=== PATIENT | male | born 1975 | race Two or more races ===

== ENCOUNTER 2023-05-12 10:02 | Inpatient (IN) | payer OTHER ==
[~2023-05-12] VITALS: Ht 182.9 cm; Wt 142.4 kg
[2023-05-12] MEDS ORDERED: MAG HYDROX/AL HYDROX/SIMETH 30 ML UDC PO PRN (15:30)
[2023-05-12] MEDS ORDERED: LORAZEPAM 1 MG TABLET FOR AGITATION PO PRN (15:30)
[2023-05-12] MEDS ORDERED: ACETAMINOPHEN ES 500 MG TABLET PO PRN (15:30)
[2023-05-12] MEDS ORDERED: MAGNESIUM HYDROXIDE 30 ML UDC PO PRN (15:30)
[2023-05-12] MEDS ORDERED: IBUPROFEN 200 MG TABLET PO PRN (15:30)
[2023-05-12] MEDS ORDERED: ZOLPIDEM TARTRATE 10 MG TABLET PO PRN (15:30)
[2023-05-12 16:00] VITALS: BP 141/77; TEMP 97.5; O2SAT 100
[2023-05-12 20:00] VITALS: BP 107/52; TEMP 98.1; O2SAT 100
[2023-05-12] MEDS: risperiDONE 1 MG TABLET PO SCH (21:59)
[2023-05-13 08:00] VITALS: BP 127/71; TEMP 97.4; O2SAT 98
[2023-05-13 16:00] VITALS: BP 126/72; TEMP 98; O2SAT 100
[2023-05-13 20:00] VITALS: BP 120/61; TEMP 97.8; O2SAT 97
[2023-05-14 08:00] VITALS: BP 126/71; TEMP 98.2; O2SAT 99
[2023-05-14 16:00] VITALS: BP 112/76; TEMP 97.9; O2SAT 100
[2023-05-14 21:32] VITALS: BP 130/66; TEMP 98.1; O2SAT 98
[2023-05-15 08:00] VITALS: BP 134/72; TEMP 98.1; O2SAT 98
[2023-05-15 16:00] VITALS: BP 127/77; TEMP 98.2; O2SAT 98
[2023-05-15 20:05] VITALS: BP 119/67; TEMP 98.4; O2SAT 98
[2023-05-16 08:00] VITALS: BP 100/58; TEMP 98; O2SAT 98
[2023-05-16 16:00] VITALS: BP 115/69; TEMP 98; O2SAT 98
[2023-05-16 21:12] VITALS: BP 123/82; TEMP 98.6; O2SAT 100
[2023-05-17 08:00] VITALS: BP 132/81; TEMP 97.9; O2SAT 98
[2023-05-17 16:00] VITALS: BP 136/97; TEMP 98.6; O2SAT 99
[2023-05-17 20:00] VITALS: BP 135/99; TEMP 98; O2SAT 98
[2023-05-17 20:03] VITALS: BP 104/56; TEMP 98.4; O2SAT 97
[2023-05-17 22:05] VITALS: BP 135/99; TEMP 98; O2SAT 98
[2023-05-18 08:56] VITALS: BP 159/100; TEMP 98; O2SAT 98
[2023-05-18 16:17] VITALS: BP 154/86; TEMP 98; O2SAT 99
[2023-05-18 20:00] VITALS: BP 143/98; TEMP 99; O2SAT 97
[2023-05-19 06:33] VITALS: BP 143/98; TEMP 99; O2SAT 97
[2023-05-19 09:06] VITALS: BP 147/93; TEMP 98; O2SAT 100
[2023-05-19] MEDS ORDERED: LORAZEPAM 1 MG TABLET FOR AGITATION PO PRN (12:00)
[2023-05-19] MEDS ORDERED: ZOLPIDEM TARTRATE 10 MG TABLET PO PRN (12:00)
[2023-05-19 20:00] VITALS: BP 143/95; TEMP 98.6; O2SAT 97
[2023-05-19] MEDS: INVEST MED MK-8189-008-02 MISC 1 DOSE PO SCH (20:01)
[2023-05-21 07:30] VITALS: BP 122/65; TEMP 97.9; O2SAT 98
[2023-05-21 16:00] VITALS: BP 141/96; TEMP 97.9; O2SAT 99
[2023-05-21 20:00] VITALS: BP 153/95; TEMP 97.7; O2SAT 97
[2023-05-22 16:00] VITALS: BP 142/86; TEMP 98.6; O2SAT 96
[2023-05-22 20:00] VITALS: BP 152/95; TEMP 98.6; O2SAT 96
[2023-05-23 16:18] VITALS: BP 136/101; TEMP 98.2; O2SAT 97
[2023-05-23 21:09] VITALS: BP 150/95; TEMP 98.2; O2SAT 96
[2023-05-24 08:00] VITALS: BP 123/75; TEMP 98.1; O2SAT 99
[2023-05-24 16:21] VITALS: BP 131/88; TEMP 98.2; O2SAT 96
[2023-05-24 20:00] VITALS: BP 153/92; TEMP 98.6; O2SAT 98
[2023-05-25 08:37] VITALS: BP 150/90; TEMP 98; O2SAT 96
[2023-05-26] MEDS ORDERED: LORAZEPAM 1 MG TABLET FOR AGITATION PO PRN (12:00)
[2023-05-26] MEDS ORDERED: ZOLPIDEM TARTRATE 10 MG TABLET PO PRN (12:00)
[2023-05-26 20:00] VITALS: BP 155/101; TEMP 98.4; O2SAT 96
[2023-05-27 08:00] VITALS: BP 100/66; TEMP 98.2; O2SAT 100
[2023-05-27 16:00] VITALS: BP 122/80; TEMP 98.6; O2SAT 99
[2023-05-27 20:00] VITALS: BP 155/97; TEMP 97.7; O2SAT 95
[2023-05-28 20:00] VITALS: BP 135/96; TEMP 97.8; O2SAT 98
[2023-05-29 08:00] VITALS: BP 139/87; TEMP 98.8; O2SAT 99
[2023-05-29 16:00] VITALS: BP 129/84; TEMP 98.8; O2SAT 99
[2023-05-29 20:00] VITALS: BP 139/84; TEMP 97.5; O2SAT 97
[2023-05-30 08:00] VITALS: BP 161/90; TEMP 98.2; O2SAT 100
[2023-05-30 16:00] VITALS: BP 126/76; TEMP 97.7; O2SAT 100
[2023-05-30 20:00] VITALS: BP 144/80; TEMP 96.6; O2SAT 98
[2023-05-31 07:00] VITALS: BP 135/108; TEMP 98.4; O2SAT 94
[2023-05-31 12:00] VITALS: BP 138/108; TEMP 98.4; O2SAT 94
[2023-05-31 16:00] VITALS: BP 139/90; TEMP 97.9; O2SAT 96
[2023-06-01 07:00] VITALS: BP 131/95; TEMP 98.4; O2SAT 97
[2023-06-01 16:13] VITALS: BP 130/95; TEMP 98.4; O2SAT 100
[2023-06-01 20:00] VITALS: BP 128/86; TEMP 98.2; O2SAT 98
[2023-06-02 07:00] VITALS: BP 140/90; TEMP 98.4; O2SAT 94
[2023-06-02] MEDS ORDERED: LORAZEPAM 1 MG TABLET FOR AGITATION PO PRN (12:00)
[2023-06-02] MEDS ORDERED: ZOLPIDEM TARTRATE 10 MG TABLET PO PRN (12:00)
[2023-06-02 16:00] VITALS: BP 142/89; TEMP 98.6; O2SAT 94
[2023-06-02 20:00] VITALS: BP 141/95; TEMP 98.8; O2SAT 95
[2023-06-03 07:00] VITALS: BP 138/95; TEMP 98.4; O2SAT 94
[2023-06-03 16:00] VITALS: BP 156/97; TEMP 98.4; O2SAT 99
[2023-06-03 20:00] VITALS: BP 142/74; TEMP 98.2; O2SAT 98
[2023-06-04 07:00] VITALS: BP 110/64; TEMP 97.9; O2SAT 97
[2023-06-04 16:00] VITALS: BP 157/101; TEMP 96; O2SAT 96
[2023-06-04 20:00] VITALS: BP 146/92; TEMP 97.9; O2SAT 98
[2023-06-05 08:00] VITALS: BP 107/66; TEMP 97.9; O2SAT 97
[2023-06-05 16:00] VITALS: BP 128/74; TEMP 98.6; O2SAT 96
[2023-06-05 20:00] VITALS: BP 145/96; TEMP 99.1; O2SAT 98
[2023-06-06 08:00] VITALS: BP 92/54; TEMP 97.9; O2SAT 100
[2023-06-06 16:00] VITALS: BP 150/77; TEMP 98.2; O2SAT 97
[2023-06-06 22:05] VITALS: BP 136/89; TEMP 98.8; O2SAT 98
[2023-06-07 07:00] VITALS: BP 119/79; TEMP 99.5
[2023-06-07 16:00] VITALS: BP 100/51; TEMP 97.3; O2SAT 96
[2023-06-07 20:00] VITALS: BP 137/80; TEMP 98.2; O2SAT 95
[2023-06-08 07:00] VITALS: BP 130/77; TEMP 97.5; O2SAT 98
[2023-06-08 20:00] VITALS: BP 152/105; TEMP 98.4; O2SAT 98
[2023-06-08 22:18] VITALS: BP 152/105; TEMP 98.4; O2SAT 98
[2023-06-09] MEDS ORDERED: ZOLPIDEM TARTRATE 10 MG TABLET PO PRN (12:00)
[2023-06-09] MEDS ORDERED: LORAZEPAM 1 MG TABLET FOR AGITATION PO PRN (12:00)
[2023-06-09 20:00] VITALS: BP 144/99; TEMP 98.2; O2SAT 97
[2023-06-10 16:00] VITALS: BP 128/76; TEMP 98.1; O2SAT 97
[2023-06-10 20:00] VITALS: BP 141/95; TEMP 98.8; O2SAT 95
[2023-06-11 08:00] VITALS: BP 148/92; TEMP 98.2
[2023-06-11 16:00] VITALS: BP 135/79; TEMP 98.1; O2SAT 97
[2023-06-11 20:00] VITALS: BP 133/82; TEMP 98.4; O2SAT 97
[2023-06-12 20:00] VITALS: BP 149/90; TEMP 98.2; O2SAT 96
[2023-06-13 15:58] VITALS: BP 124/93; TEMP 98.2; O2SAT 96
[2023-06-13 21:31] VITALS: BP 139/96; TEMP 97.9; O2SAT 97
[2023-06-14 08:53] VITALS: BP 138/81; TEMP 98.2; O2SAT 98
[2023-06-14 20:00] VITALS: BP 132/81; TEMP 97.9; O2SAT 96
[2023-06-15 15:56] VITALS: BP 125/93; TEMP 98.2; O2SAT 96
[2023-06-15 20:00] VITALS: BP 124/75; TEMP 98.2; O2SAT 97
[2023-06-16 08:00] VITALS: BP 153/85; TEMP 98.9; O2SAT 97
[2023-06-16 20:00] VITALS: BP 101/55; TEMP 97.7; O2SAT 94
[2023-06-17 08:00] VITALS: BP 131/81; TEMP 98.4; O2SAT 99
[2023-06-17 20:00] VITALS: BP 122/81; TEMP 98.2; O2SAT 97
[2023-06-18 07:00] VITALS: BP 146/98; TEMP 98.4; O2SAT 97
[2023-06-18 16:00] VITALS: BP 133/71; TEMP 98.4; O2SAT 98
[2023-06-18 20:00] VITALS: BP 147/92; TEMP 97.8; O2SAT 96
[2023-06-19 08:47] VITALS: BP 119/76; TEMP 98.4; O2SAT 100
[2023-06-19 20:00] VITALS: BP 127/86; TEMP 97.9; O2SAT 99
[2023-06-20 08:00] VITALS: BP 123/66; TEMP 97.9; O2SAT 96
[2023-06-20 16:00] VITALS: BP 100/47; TEMP 97.9; O2SAT 96
[2023-06-21 08:00] VITALS: BP 154/39; TEMP 98.2; O2SAT 97
[2023-06-21 20:00] VITALS: BP 124/73; TEMP 98.4; O2SAT 94
[2023-06-22 20:00] VITALS: BP 147/96; TEMP 98.1; O2SAT 96
[2023-06-23 07:00] VITALS: BP 137/96; TEMP 98.8; O2SAT 95
[2023-06-23] MEDS ORDERED: ZOLPIDEM TARTRATE 10 MG TABLET PO PRN (12:00)
[2023-06-23] MEDS ORDERED: LORAZEPAM 1 MG TABLET FOR AGITATION/ANXIETY PO PRN (12:00)
[2023-06-23 20:00] VITALS: BP_SYST 141; BP_SYST 142; BP_DIAS 92; BP_DIAS 93; TEMP 98.6; O2SAT 97
[2023-06-24 08:00] VITALS: BP 145/88; TEMP 98.2; O2SAT 95
[2023-06-24 16:00] VITALS: BP 139/89; TEMP 98.5; O2SAT 96
[2023-06-24 20:00] VITALS: BP 133/88; TEMP 98.2; O2SAT 97
[2023-06-25 07:30] VITALS: BP 122/83; TEMP 97.5; O2SAT 98
[2023-06-25 16:00] VITALS: BP 95/65; TEMP 97.3; O2SAT 98
[2023-06-25 20:00] VITALS: BP 142/93; TEMP 98.6; O2SAT 97
[2023-06-26 20:00] VITALS: BP 143/95; TEMP 98.1; O2SAT 96
[2023-06-27 20:35] VITALS: BP 155/97; TEMP 98.8; O2SAT 95
[2023-06-29 20:00] VITALS: BP 138/83; TEMP 98.6; O2SAT 97
[2023-06-30 08:43] VITALS: BP 140/95; TEMP 97.5; O2SAT 97
[2023-06-30] MEDS ORDERED: LORAZEPAM 1 MG TABLET FOR AGITATION/ANXIETY PO PRN (12:00)
[2023-06-30] MEDS ORDERED: ZOLPIDEM TARTRATE 10 MG TABLET PO PRN (12:00)
[2023-06-30 20:00] VITALS: BP 129/92; TEMP 98.8; O2SAT 96
[2023-07-01 08:00] VITALS: BP 123/75; TEMP 98.1; O2SAT 100
[2023-07-01 16:00] VITALS: BP 148/105; TEMP 98.6; O2SAT 96
[2023-07-01 20:00] VITALS: BP 148/92; TEMP 98.4; O2SAT 98
[2023-07-02 16:30] VITALS: BP 136/94; TEMP 98.8; O2SAT 100
[2023-07-02 20:00] VITALS: BP 140/111; TEMP 98.4; O2SAT 98
[2023-07-03 08:00] VITALS: BP 129/84; TEMP 97.9; O2SAT 98
[2023-07-03 20:00] VITALS: BP 130/89; TEMP 98.6; O2SAT 95
[2023-07-04 08:00] VITALS: BP 129/87; TEMP 98.6; O2SAT 98
[2023-07-04 20:00] VITALS: BP 150/88; TEMP 98.2; O2SAT 99
[2023-07-05 00:08] VITALS: BP 150/88; TEMP 98.2; O2SAT 99
[2023-07-05 07:30] VITALS: BP 114/90; TEMP 97.9; O2SAT 99
[2023-07-05 16:04] VITALS: BP 130/90; TEMP 98.2; O2SAT 97
[2023-07-05 20:00] VITALS: BP_SYST 122; BP_SYST 132; BP_DIAS 54; BP_DIAS 83; TEMP 97.3; TEMP 98.6; O2SAT 95; O2SAT 96
[2023-07-06 08:18] VITALS: BP 129/82; TEMP 98.2; O2SAT 99
[2023-07-06 20:00] VITALS: BP 123/76; TEMP 98.8; O2SAT 96
[2023-07-07 08:38] VITALS: BP 122/81; TEMP 98.4; O2SAT 98
[2023-07-07] MEDS ORDERED: ZOLPIDEM TARTRATE 10 MG TABLET PO PRN (12:00)
[2023-07-07] MEDS ORDERED: LORAZEPAM 1 MG TABLET FOR AGITATION/ANXIETY PO PRN (12:00)
== END 2023-07-07 10:51 | disposition home or self-care (01) | DRG 951 ==
LOC: GPS 14:49 → MED 05-17 21:57
PROVIDERS: ADMIT Psychiatry & Neurology Psychiatry; ATTEND Psychiatry & Neurology Psychiatry
DX: Z00.6 Encounter for examination for normal comparison and control in clinical research program (principal); F20.0 Paranoid schizophrenia; Z87.891 Personal history of nicotine dependence; G47.00 Insomnia, unspecified
CPT/HCPCS: G0378

== ENCOUNTER 2024-07-31 12:27 | Inpatient (IN) | payer OTHER ==
[~2024-07-31] VITALS: Ht 182.9 cm; Wt 131.5 kg
[2024-07-31] MEDS ORDERED: IBUPROFEN 200 MG TABLET PO PRN ×2 (16:00→16:30)
[2024-07-31] MEDS ORDERED: ZOLPIDEM TARTRATE 10 MG TABLET PO PRN ×2 (16:00→16:30)
[2024-07-31] MEDS ORDERED: LORAZEPAM 1 MG TABLET FOR AGITATION PO PRN (16:00)
[2024-07-31] MEDS ORDERED: MAGNESIUM HYDROXIDE 30 ML UDC PO PRN ×2 (16:00→16:30)
[2024-07-31] MEDS ORDERED: MAG HYDROX/AL HYDROX/SIMETH 30 ML UDC PO PRN ×2 (16:00→16:30)
[2024-07-31] MEDS ORDERED: ACETAMINOPHEN ES 500 MG TABLET PO PRN ×2 (16:00→16:30)
[2024-07-31] MEDS ORDERED: RISP3TAB61 PO (16:28)
[2024-07-31] MEDS ORDERED: LORAZEPAM 1 MG TABLET PO PRN (16:30)
[2024-07-31 17:16] VITALS: BP 128/74; TEMP 98.3; O2SAT 98
[2024-07-31 20:00] VITALS: BP 113/51; TEMP 97.7; O2SAT 98
[2024-07-31] MEDS ORDERED: risperiDONE 1 MG TABLET PO SCH (22:00)
[2024-07-31] MEDS: HOME MED MISCELLANEOUS (RISPERIDONE 3MG) PO SCH (22:53)
[2024-08-01 07:30] VITALS: BP 102/50; TEMP 97.7; O2SAT 96
[2024-08-01 16:00] VITALS: BP 100/39; TEMP 97.9; O2SAT 96
[2024-08-01 20:00] VITALS: BP 107/59; TEMP 98.4; O2SAT 97
[2024-08-02 08:00] VITALS: BP 121/71; TEMP 98.1; O2SAT 97
[2024-08-02 16:00] VITALS: BP 103/62; TEMP 98.2; O2SAT 96
[2024-08-02 20:00] VITALS: BP 100/60; TEMP 98.6; O2SAT 95
[2024-08-03 08:00] VITALS: BP 104/55; TEMP 97.9; O2SAT 94
[2024-08-03 16:00] VITALS: BP 109/60; TEMP 98.2; O2SAT 97
[2024-08-03 20:00] VITALS: BP 132/66; TEMP 98.6; O2SAT 98
[2024-08-04 08:00] VITALS: BP 159/77; TEMP 97.9; O2SAT 98
[2024-08-04 16:00] VITALS: BP 150/71; TEMP 98.1; O2SAT 100
[2024-08-04 20:00] VITALS: BP 170/79; TEMP 99; O2SAT 97
[2024-08-04] MEDS: RISPERIDONE 1 MG PO SCH (21:54)
[2024-08-04] MEDS ORDERED: risperiDONE 1 MG TABLET PO SCH ×2 (22:00)
[2024-08-04 23:00] VITALS: BP 120/65; TEMP 98.9; O2SAT 98
[2024-08-05 07:30] VITALS: BP 117/70; TEMP 98.4; O2SAT 99
[2024-08-05 16:29] VITALS: BP 99/48; TEMP 98.1; O2SAT 99
[2024-08-05 20:00] VITALS: BP 134/81; TEMP 99; O2SAT 97
[2024-08-06 07:30] VITALS: BP 118/74; TEMP 97.7; O2SAT 96
[2024-08-06 16:00] VITALS: BP 123/63; TEMP 97.7; O2SAT 96
[2024-08-06 20:00] VITALS: BP 128/82; TEMP 98.4; O2SAT 98
[2024-08-07 07:00] VITALS: BP 135/79; TEMP 98.1; O2SAT 98
[2024-08-07 08:00] VITALS: BP 135/79; TEMP 98.1; O2SAT 98
[2024-08-07 16:00] VITALS: BP 99/51; TEMP 98.4; O2SAT 98
[2024-08-07 20:00] VITALS: BP 115/80; TEMP 99.3; O2SAT 95
[2024-08-08 07:00] VITALS: BP 126/97; TEMP 98.1; O2SAT 98
[2024-08-08 16:00] VITALS: BP 136/87; TEMP 97.7; O2SAT 100
[2024-08-08 20:00] VITALS: BP 131/72; TEMP 98.3; O2SAT 99
[2024-08-09 20:00] VITALS: BP 123/79; TEMP 98.2; O2SAT 97
[2024-08-10 08:00] VITALS: BP 130/71; TEMP 98.1; O2SAT 99
[2024-08-10 16:00] VITALS: BP 129/60; TEMP 98.1; O2SAT 99
[2024-08-10 20:00] VITALS: BP 128/91; TEMP 98.4; O2SAT 100
[2024-08-11 08:00] VITALS: BP 132/82; TEMP 99.1
[2024-08-11 16:00] VITALS: BP 128/76; TEMP 98.3
[2024-08-11 20:00] VITALS: BP 150/93; TEMP 99; O2SAT 99
[2024-08-12 08:00] VITALS: BP 128/70; TEMP 98.4
[2024-08-12 18:00] VITALS: BP 142/84; TEMP 98.4; O2SAT 97
[2024-08-12 20:00] VITALS: BP 148/76; TEMP 98.2; O2SAT 99
[2024-08-13 08:42] VITALS: BP 145/80; TEMP 98; O2SAT 95
[2024-08-13 18:00] VITALS: BP 180/80; TEMP 98.2; O2SAT 95
[2024-08-14 08:00] VITALS: BP 136/65; TEMP 98.6; O2SAT 100
[2024-08-14] MEDS ORDERED: ZOLPIDEM TARTRATE 10 MG TABLET PO PRN (13:00)
[2024-08-14] MEDS ORDERED: LORAZEPAM 1 MG TABLET FOR AGITATION PO PRN (13:00)
[2024-08-14 16:00] VITALS: BP 127/89; TEMP 98.2; O2SAT 99
[2024-08-14 20:00] VITALS: BP 133/75; TEMP 98.6; O2SAT 96
[2024-08-14] MEDS: INVEST MED OTSUKA 382-201-00035 PO SCH (20:02)
[2024-08-15 08:00] VITALS: BP 127/68; TEMP 98.8; O2SAT 95
[2024-08-15 20:26] VITALS: BP 108/74; TEMP 98.4; O2SAT 95
[2024-08-16 08:00] VITALS: BP 118/75; TEMP 98.1; O2SAT 99
[2024-08-16 16:00] VITALS: BP_SYST 121; BP_SYST 123; BP_DIAS 70; BP_DIAS 81; TEMP 97.4; TEMP 98; O2SAT 99
[2024-08-16 20:33] VITALS: BP 119/76; TEMP 97.7; O2SAT 99
[2024-08-18 08:00] VITALS: BP 107/64; TEMP 97.8; O2SAT 95
[2024-08-18 18:00] VITALS: BP 109/62; TEMP 98.2; O2SAT 99
[2024-08-18 20:00] VITALS: BP 136/78; TEMP 98.2; O2SAT 98
[2024-08-19 08:00] VITALS: BP 134/72; TEMP 97.3; O2SAT 98
[2024-08-19 16:00] VITALS: TEMP 98.2; O2SAT 98
[2024-08-19 20:00] VITALS: BP 125/82; TEMP 98.6; O2SAT 97
[2024-08-20 08:00] VITALS: BP 125/77; TEMP 98.2; O2SAT 100
[2024-08-20 16:00] VITALS: BP 133/80; TEMP 98.6; O2SAT 97
[2024-08-20 20:00] VITALS: BP 137/71; TEMP 98.8; O2SAT 96
[2024-08-21 08:00] VITALS: BP 147/95; TEMP 97.9; O2SAT 99
[2024-08-21] MEDS ORDERED: LORAZEPAM 1 MG TABLET FOR AGITATION PO PRN (13:00)
[2024-08-21] MEDS ORDERED: ZOLPIDEM TARTRATE 10 MG TABLET PO PRN (13:00)
[2024-08-21 16:00] VITALS: BP 132/86; TEMP 98.2; O2SAT 99
[2024-08-21 20:00] VITALS: BP 108/57; TEMP 98.6; O2SAT 96
[2024-08-22 08:00] VITALS: BP 132/83; TEMP 98.8; O2SAT 97
[2024-08-22 16:00] VITALS: BP 134/76; TEMP 98.8; O2SAT 96
[2024-08-22 20:00] VITALS: BP 124/61; TEMP 98.3; O2SAT 100
[2024-08-23 08:00] VITALS: BP 147/83; TEMP 99; O2SAT 96
[2024-08-23 16:00] VITALS: BP 138/86; TEMP 99.3; O2SAT 97
[2024-08-23 20:00] VITALS: BP 140/77; TEMP 98.1; O2SAT 100
[2024-08-24 08:00] VITALS: BP 126/88; TEMP 98.2; O2SAT 100
[2024-08-24 16:00] VITALS: BP 115/68; TEMP 98.2; O2SAT 97
[2024-08-24 20:00] VITALS: BP 125/72; TEMP 97.9; O2SAT 97
[2024-08-25 08:00] VITALS: BP 139/76; TEMP 97.5; O2SAT 95
[2024-08-25 16:00] VITALS: BP 108/65; TEMP 98.2; O2SAT 95
[2024-08-25 20:00] VITALS: BP 117/68; TEMP 98.5; O2SAT 96
[2024-08-26 08:00] VITALS: BP_SYST 120; BP_SYST 150; BP_DIAS 54; BP_DIAS 89; TEMP 98.2; TEMP 98.8; O2SAT 100; O2SAT 98
[2024-08-26 20:00] VITALS: BP 131/86; TEMP 97; O2SAT 99
[2024-08-27 16:00] VITALS: BP 109/67; TEMP 98.4; O2SAT 99
[2024-08-27 20:00] VITALS: BP 127/67; TEMP 99; O2SAT 98
[2024-08-28 08:00] VITALS: BP 134/85; TEMP 98.2; O2SAT 96
[2024-08-28] MEDS ORDERED: ZOLPIDEM TARTRATE 10 MG TABLET PO PRN (13:00)
[2024-08-28] MEDS ORDERED: LORAZEPAM 1 MG TABLET FOR AGITATION PO PRN (13:00)
[2024-08-28 20:47] VITALS: BP 124/80; TEMP 98.4; O2SAT 96
[2024-08-29 08:00] VITALS: BP 133/91; TEMP 98.4; O2SAT 99
[2024-08-29 20:00] VITALS: BP 141/78; TEMP 98.8; O2SAT 97
[2024-08-30 08:00] VITALS: BP 116/84; TEMP 98.1; O2SAT 97
[2024-08-30 16:00] VITALS: BP 123/98; TEMP 98.8; O2SAT 96
[2024-08-30 20:00] VITALS: BP 135/88; TEMP 99; O2SAT 100
[2024-08-31 08:00] VITALS: BP 102/73; TEMP 98.4; O2SAT 98
[2024-08-31 16:00] VITALS: BP 123/62; TEMP 98.4; O2SAT 94
[2024-08-31 20:00] VITALS: BP 134/82; TEMP 98.2; O2SAT 96
[2024-09-01 08:00] VITALS: BP 120/46; TEMP 98.1; O2SAT 100
[2024-09-01 16:00] VITALS: BP 128/72; TEMP 98.2; O2SAT 98
[2024-09-01 20:00] VITALS: BP 120/72; TEMP 98.6; O2SAT 98
[2024-09-02 08:00] VITALS: BP 122/79; TEMP 97.7; O2SAT 98
[2024-09-02 21:37] VITALS: BP 107/68; TEMP 98.6; O2SAT 97
[2024-09-03 22:00] VITALS: BP 136/84; TEMP 98.2; O2SAT 97
[2024-09-04 08:00] VITALS: BP 135/81; TEMP 97.9; O2SAT 95
[2024-09-04] MEDS ORDERED: ZOLPIDEM TARTRATE 10 MG TABLET PO PRN (13:00)
[2024-09-04] MEDS ORDERED: LORAZEPAM 1 MG TABLET FOR AGITATION PO PRN (13:00)
[2024-09-04 16:00] VITALS: BP 153/77; TEMP 99; O2SAT 98
[2024-09-04 20:00] VITALS: BP 105/52; TEMP 98.2; O2SAT 97
[2024-09-05 16:00] VITALS: BP 143/87; TEMP 98.6; O2SAT 98
[2024-09-05 20:00] VITALS: BP 129/61; TEMP 97.7; O2SAT 97
[2024-09-06 08:00] VITALS: BP 135/81; TEMP 97.9; O2SAT 95
[2024-09-06 16:00] VITALS: BP 143/84; TEMP 98.4; O2SAT 96
[2024-09-06 19:55] VITALS: BP 134/76; TEMP 98; O2SAT 98
[2024-09-07 08:00] VITALS: BP 135/80; TEMP 98.2; O2SAT 96
[2024-09-07 16:00] VITALS: BP 157/78; TEMP 98.2; O2SAT 99
[2024-09-07 20:00] VITALS: BP 148/84; TEMP 97.9; O2SAT 99
[2024-09-08 08:00] VITALS: BP 128/80; TEMP 98; O2SAT 96
[2024-09-08 16:00] VITALS: BP 140/80; TEMP 98.6; O2SAT 96
[2024-09-08 20:00] VITALS: BP 132/78; TEMP 98.4; O2SAT 97
[2024-09-09 08:00] VITALS: BP 126/73; TEMP 97.5; O2SAT 97
[2024-09-09 16:00] VITALS: BP 125/85; TEMP 98.7; O2SAT 98
[2024-09-09 20:00] VITALS: BP 119/68; TEMP 97.7; O2SAT 97
[2024-09-10 08:00] VITALS: BP 134/85; TEMP 97.5; O2SAT 98
[2024-09-10 16:00] VITALS: BP 136/85; TEMP 98.6; O2SAT 97
[2024-09-10 20:00] VITALS: BP 124/85; TEMP 98; O2SAT 98
[2024-09-11 08:00] VITALS: BP 102/86; TEMP 97.9; O2SAT 100
[2024-09-11] MEDS ORDERED: ZOLPIDEM TARTRATE 10 MG TABLET PO PRN (13:00)
[2024-09-11] MEDS ORDERED: LORAZEPAM 1 MG TABLET FOR AGITATION PO PRN (13:00)
[2024-09-11 20:00] VITALS: BP 125/72; TEMP 98.2; O2SAT 96
[2024-09-12 08:35] VITALS: BP 118/70; TEMP 98.1; O2SAT 98
[2024-09-12 20:00] VITALS: BP 116/69; TEMP 98.3; O2SAT 98
[2024-09-13 08:00] VITALS: BP 141/85; TEMP 97.9; O2SAT 98
[2024-09-13 17:25] VITALS: BP 136/82; TEMP 98.5; O2SAT 97
[2024-09-13 20:00] VITALS: BP 134/90; TEMP 97.7; O2SAT 96
[2024-09-14 08:00] VITALS: BP 112/68; TEMP 98.6; O2SAT 98
[2024-09-14 16:00] VITALS: BP 133/84; TEMP 99; O2SAT 97
[2024-09-14 20:31] VITALS: BP 122/72; TEMP 98; O2SAT 98
[2024-09-15 08:00] VITALS: BP 133/93; TEMP 98.2; O2SAT 97
[2024-09-15 16:00] VITALS: BP 116/83; TEMP 97.5; O2SAT 98
[2024-09-15 20:00] VITALS: BP 130/80; TEMP 97.9; O2SAT 97
[2024-09-16 08:00] VITALS: BP 105/78; TEMP 98.6; O2SAT 100
[2024-09-16 08:01] VITALS: BP 138/88; TEMP 97.5; O2SAT 98
[2024-09-16 16:00] VITALS: BP 109/83; TEMP 98.4; O2SAT 99
[2024-09-16 16:01] VITALS: BP 145/88; TEMP 98.1; O2SAT 96
[2024-09-16 20:00] VITALS: BP 111/78; TEMP 98.6; O2SAT 97
[2024-09-16 20:49] VITALS: BP 133/84; TEMP 98.4; O2SAT 97
[2024-09-17 13:00] VITALS: BP 130/80; TEMP 98.1; O2SAT 97
[2024-09-17 20:00] VITALS: BP 132/76; TEMP 98.8; O2SAT 99
[2024-09-18 08:00] VITALS: BP 146/82; TEMP 98.4; O2SAT 97
[2024-09-18] MEDS ORDERED: LORAZEPAM 1 MG TABLET FOR AGITATION PO PRN (13:00)
[2024-09-18] MEDS ORDERED: ZOLPIDEM TARTRATE 10 MG TABLET PO PRN (13:00)
[2024-09-18 20:00] VITALS: BP 122/73; TEMP 98.4; O2SAT 97
[2024-09-19 08:00] VITALS: BP 122/56; TEMP 98.1; O2SAT 100
[2024-09-19 16:00] VITALS: BP 140/95; TEMP 98.4; O2SAT 95
[2024-09-19 20:00] VITALS: BP 124/72; TEMP 98.2; O2SAT 99
[2024-09-20 09:52] VITALS: BP 136/89; TEMP 98.1; O2SAT 98
[2024-09-20 16:00] VITALS: BP 121/71; TEMP 98.6; O2SAT 98
[2024-09-20 20:00] VITALS: BP 142/85; TEMP 98.5; O2SAT 98
[2024-09-21 08:00] VITALS: BP 141/81; TEMP 98.4; O2SAT 98
[2024-09-21 20:00] VITALS: BP 148/78; TEMP 98.4; O2SAT 98
[2024-09-22 08:00] VITALS: BP 127/77; TEMP 98.1; O2SAT 98
[2024-09-22 16:00] VITALS: BP 126/81; TEMP 98.8; O2SAT 96
[2024-09-22 20:00] VITALS: BP 123/74; TEMP 98.2; O2SAT 100
[2024-09-23 08:00] VITALS: BP 146/89; TEMP 98.2; O2SAT 93
[2024-09-23 20:00] VITALS: BP 134/75; TEMP 98.7; O2SAT 99
[2024-09-24 09:10] VITALS: BP 155/81; TEMP 97.9; O2SAT 99
[2024-09-24 20:00] VITALS: BP 130/83; TEMP 98.1; O2SAT 99
[2024-09-25 08:00] VITALS: BP 137/95; TEMP 98.2; O2SAT 96
[2024-09-25 16:00] VITALS: BP 135/90; TEMP 97.9; O2SAT 97
[2024-09-25 20:07] VITALS: BP 144/89; TEMP 98.8; O2SAT 97
[2024-09-26 08:00] VITALS: BP 118/81; TEMP 97.7; O2SAT 96
[2024-09-26 20:00] VITALS: BP 136/85; TEMP 98.4; O2SAT 95
[2024-09-26] MEDS: HOME MED MISCELLANEOUS (RISPERIDONE 1MG TABLET) PO SCH (21:04)
[2024-09-27 08:00] VITALS: BP 124/88; TEMP 98; O2SAT 97
[2024-09-27 20:00] VITALS: BP 136/74; TEMP 98.4; O2SAT 99
[2024-09-27] MEDS: HOME MED MISCELLANEOUS (RISPERIDONE 1MG TABLET) PO SCH (21:07)
[2024-09-28 08:00] VITALS: BP 129/79; TEMP 98.4; O2SAT 95
[2024-09-28 16:00] VITALS: BP 130/81; TEMP 98.8; O2SAT 100
[2024-09-28 20:00] VITALS: BP 136/77; TEMP 98.8; O2SAT 100
[2024-09-29 08:00] VITALS: BP 126/72; TEMP 98.4; O2SAT 96
[2024-09-29 16:00] VITALS: BP 127/83; TEMP 98.8; O2SAT 98
[2024-09-29 19:53] VITALS: BP 140/93; TEMP 98.6; O2SAT 94
[2024-09-29 20:00] VITALS: BP 140/93; TEMP 98.6; O2SAT 94
[2024-09-30] MEDS: RISPERIDONE 3 MG PO SCH (03:01)
[2024-09-30 08:00] VITALS: BP 144/84; TEMP 98.6; O2SAT 94
[2024-09-30 20:00] VITALS: BP 130/87; TEMP 99; O2SAT 98
[2024-10-01 08:00] VITALS: BP 146/84; TEMP 98; O2SAT 94
[2024-10-01 16:00] VITALS: BP 140/81; TEMP 98; O2SAT 96
[2024-10-01 20:43] VITALS: BP 150/83; TEMP 98.2; O2SAT 98
[2024-10-02 08:00] VITALS: BP 108/73; TEMP 98.4; O2SAT 98
[2024-10-02 16:00] VITALS: BP 129/94; TEMP 98.1; O2SAT 97
[2024-10-02 20:01] VITALS: BP 108/77; TEMP 98.2; O2SAT 97
[2024-10-03 08:00] VITALS: BP 130/80; TEMP 98; O2SAT 98
== END 2024-10-03 10:23 | disposition home or self-care (01) | DRG 951 ==
LOC: MEDOV2 15:21 → MED 15:52 → MEDSG2 08-08 19:02
PROVIDERS: ADMIT Psychiatry & Neurology Psychiatry; ATTEND Psychiatry & Neurology Psychiatry
DX: Z00.6 Encounter for examination for normal comparison and control in clinical research program (principal); F20.0 Paranoid schizophrenia; G47.00 Insomnia, unspecified
CPT/HCPCS: G0378